=== PATIENT | female | born 1955 | race Two or more races ===

== ENCOUNTER 2021-03-04 11:34 | Emergency (ER) | payer OTHER ==
[~2021-03-04] VITALS: Ht 162.6 cm; Wt 102.1 kg
[2021-03-04] MEDS ORDERED: COZAAR100 MG (11:40)
[2021-03-04] MEDS ORDERED: URETRON D-S TAB1 TAB (11:40)
[2021-03-04] MEDS ORDERED: LEXAPRO5 MG (11:40)
== END 2021-03-04 16:47 | disposition home or self-care (01) ==
LOC: ER 11:34
DX: R10.32 Left lower quadrant pain (principal); R11.2 Nausea with vomiting, unspecified